=== PATIENT | male | born 1960 | race Caucasian/White ===

== ENCOUNTER → 2016-11-26 | Outpatient (CLI) | payer BC ==
--- NOTE | 2016-11-26 15:35 | DI ---
RIGHT SHOULDER, 11/26/2016 3:05 PM: Clinical History: Acute right shoulder pain. Previous Exam: None at this facility. 3 views are submitted. There is no acute soft tissue, osseous, or joint abnormality. There is mild na rrowing of the glenohumeral joint space. The visualized portions of the right lung are normal, but th e right apex is not completely visualized. 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 The exam is otherwise normal.
== END ==
LOC: RAD 15:07
DX: M25.511 Pain in right shoulder (principal); M19.011 Primary osteoarthritis, right shoulder; W18.09XA Striking against other object with subsequent fall, initial encounter; Y93.89 Activity, other specified
CPT/HCPCS: 73030